=== PATIENT | female | born 1975 | race Two or more races ===

== ENCOUNTER 2021-06-10 13:33 | Emergency (ER) | payer SELFPAY ==
[~2021-06-10] VITALS: Ht 154.9 cm; Wt 68.0 kg
--- NOTE | 2021-06-10 13:55 | NUR ---
PT CAME TO ER C/O WORSENING HEADACHE X 3 DAYS. PAIN IS LOCATED IN THE OCCIPUT RATED 9/10. ADMITS BLURRY VISION. DENIES DIZZINESS OR SENSITIVITY TO LIGHT. DENIES NAUSEA. REPORTS AN EPISODE OF VOMITING YESTERDAY. DENIES HEAD TRAUMA. ADMITS FEELING LIKE SHE HAD A FEVER BUT TEMPERATURE AT HOME WAS 97 F. AAOX4, AMBULATORY, BREATHING EVEN AND UNLABORED. TEMP 98.7 F. VS STABLE.
--- NOTE | 2021-06-10 14:36 | NUR ---
DR HERRMANN AT BEDSIDE
--- NOTE | 2021-06-10 14:40 | NUR ---
IV WAS PLACED L AC 20G. LABS WERE COLLECTED AND SENT.
[2021-06-10] MEDS ORDERED: diphenhydrAMINE HCL ELIX 25 MG/10 ML UDC ONE (14:52)
[2021-06-10] MEDS ORDERED: KETOROLAC TROMETHAMINE INJ 30 MG/ML VIAL ONE (14:53)
[2021-06-10] MEDS ORDERED: METOCLOPRAMIDE HCL 10 MG/2 ML VIAL ONE (14:53)
[2021-06-10] MEDS ORDERED: METOCLOPRAMIDE HCL 10 MG/2 ML VIAL IV ONE (15:00)
[2021-06-10] MEDS ORDERED: KETOROLAC TROMETHAMINE INJ 30 MG/ML VIAL IV ONE (15:00)
[2021-06-10] MEDS ORDERED: IV NS 0.9% 1,000 ML BAG IV ONE (15:00)
[2021-06-10] MEDS ORDERED: diphenhydrAMINE HCL 50 MG/ML VIAL IV ONE (15:00)
[2021-06-10] MEDS ORDERED: diphenhydrAMINE HCL 50 MG/ML VIAL ONE (15:11)
[2021-06-10 15:25] LABS: BASOPHILS # (AUTO) 0.2 K/uL (0.0-0.2); BASOPHILS % (AUTO) 2.9 % (0.0-2.0); EOSINOPHILS % (AUTO) 1.4 % (0.0-6.0); HEMATOCRIT 43 % (33-45); HEMOGLOBIN 14.5 g/dL (11.5-14.8); LYMPHOCYTES # (AUTO) 2.3 K/uL (0.8-4.8); MEAN CORPUSCULAR HGB CONC 33 g/dl (31.0-36.0); MEAN CORPUSCULAR VOLUME 90 fL (82-100); MONOCYTES # (AUTO) 0.4 K/uL (0.1-1.30); MONOCYTES % (AUTO) 4.9 % (2.0-12.0); NEUTROPHILS # (AUTO) 4.5 K/uL (1.8-8.9); NEUTROPHILS % (AUTO) 59.8 % (43.0-81.0); PLATELET COUNT (AUTO) 252 K/uL (150-450); WHITE BLOOD COUNT (AUTO) 7.4 K/uL (4.3-11.0)
[2021-06-10 15:36] LABS: CALCIUM, SERUM 8.6 mg/dL (8.5-10.1); CREATININE 0.9 mg/dL (0.6-1.3); POTASSIUM 3.9 mmol/L (3.5-5.1)
[2021-06-10 17:57] LABS: BILIRUBIN,URINE Negative (NEGATIVE); COLOR,URINE YELLOW (YELLOW); LEUKOCYTE ESTERASE ,URINE Negative (NEGATIVE); NITRITE, URINE Negative (NEGATIVE); PH,URINE 5.5 (5.0-8.0); PROTEIN,URINE Negative (NEGATIVE); UGLUCOSE Negative (NEGATIVE); UROBILINOGEN,URINE 0.2 EU/dL (0.2)
--- NOTE | 2021-06-10 18:54 | NUR ---
Patient IV was removed. Patient discharged to home in stable condition. Written and verbal after care instructions given. Patient verbalizes understanding of instruction.
[2021-06-10 18:55] VITALS: BP 126/72
== END 2021-06-10 18:54 | disposition home or self-care (01) ==
LOC: ER 13:36
DX: M54.81 Occipital neuralgia (principal)
CPT/HCPCS: 36415; 80048; 81003; 84703; 85025; 96361; 96374; 96375; 99284; J1200; J1885; J2765; J7030; Q0163